=== PATIENT | male | born 1950 | race Caucasian/White ===

== ENCOUNTER → 2019-12-08 | Outpatient (CLI) | payer MEDICARE, OTHER ==
--- NOTE | 2019-12-08 16:14 | Diagnostic Imaging Report ---
Exam: Bone mineral density study. History: Osteoarthritis Comparison: None available. Discussion: Evaluation of the left hip and lumbar spine was performed. The study is technically adequate. The patient's fracture risk is compared to an age-matched control. The patient denies prior surgery/fracture of the spine, hips or forearm. Left hip femoral neck bone mineral density: 0.622 g/cm2, T-score is -2.3, Z-score is -1.1. Left hip total bone mineral density: 0.744 g/cm2, T-score is -1.9, Z-score is -1.3. Lumbar spine total bone mineral density: 1.046 g/cm2, T-score is -0.4, Z-score is 0.5. Impression: Bone mineralization by WHO Classification in the left hip is osteopenia, the fracture risk is increased. FRAX 10 year fracture risk: Major osteoporotic fracture: 8.5%. Hip fracture 3.8% Signed by: Dr. Armando Galvan M.D. on 12/08/2019 4:11 PM
== END ==
LOC: DX 10:49
PROVIDERS: ATTEND Specialist
DX: M16.0 Bilateral primary osteoarthritis of hip (principal); M85.88 Other specified disorders of bone density and structure, other site
CPT/HCPCS: 77080

== ENCOUNTER 2019-12-27 14:44 | Outpatient (RCR) | payer MEDICARE, OTHER | END 2020-01-17 | LOC: PT 14:44 | PROVIDERS: ATTEND Specialist | DX: M16.0 Bilateral primary osteoarthritis of hip (principal) ==

== ENCOUNTER → 2020-05-02 | Day surgery (SDC) | payer MEDICARE, OTHER ==
[2020-04-28 12:23] LABS: BASOPHILS # (AUTO) 0.1 (0.0-0.1); BASOPHILS % 0.9 % (0.0-1.0); EOSINOPHILS # (AUTO) 0.3 (0.0-0.4); EOSINOPHILS % 2.8 % (0.0-6.0); HEMATOCRIT 46.2 % (38.2-49.6); HEMOGLOBIN 15.4 g/dL (14.0-18.0); LYMPHOCYTES # (AUTO) 2.4 (1.0-3.2); LYMPHOCYTES % 26.2 % (18.0-39.1); MEAN CORPUSCULAR HEMOGLOBIN 31.6 pg (28-32); MEAN CORPUSCULAR HGB CONC 33.3 g/dL (31-35); MEAN CORPUSCULAR VOLUME 94.9 fL (81-99); MONOCYTES # (AUTO) 0.6 (0.2-0.8); MONOCYTES % 6.3 % (4.4-11.3); NEUTROPHILS # (AUTO) 5.7 (2.1-6.9); NEUTROPHILS % 63.4 % (38.7-80.0); PLATELET COUNT 250 x10e3/uL (140-360); RED BLOOD COUNT 4.87 x10e6/uL (4.3-5.7); RED CELL DISTRIBUTION WIDTH 12.7 % (11.7-14.4)
[~2020-05-02] MED LIST: BUPIVACAINE HCL 0.5% INJ 30 ML VIAL INJ ONE; CEFAZOLIN SOD 1 GM/NS 50ML 50 ML IV ONE; DEXAMETHASONE SOD PHOS INJ 4 MG/ML VIAL ONE; FENTANYL CITRATE/PF 100MCG/2 ML INJ ONE; GLYCOPYRROLATE INJ 0.2 MG/ML VIAL ONE; KETOROLAC TROMETHAMINE 30 MG/ML VIAL ONE; LIDOCAINE HCL 2% LOCAL INJ 5 ML SDV VIAL INJ ONE; ONDANSETRON HCL INJ 2MG/ML 2ML 2 MG/ML VIAL ONE; PROPOFOL IV EMULSION 10 MG/ML 20 ML VIAL ONE; SEVOFLURANE INHAL SOLN 250 ML PEN BTL ONE; VITAMIN C1000 M2 PO
[2020-05-02 10:40] VITALS: BP 131/71
== END | disposition home or self-care (01) ==
LOC: OR 06:25
PROVIDERS: ATTEND Podiatrist Foot & Ankle Surgery
DX: M20.21 Hallux rigidus, right foot (principal); G47.33 Obstructive sleep apnea (adult) (pediatric); Z72.0 Tobacco use; Z01.810 Encounter for preprocedural cardiovascular examination; Z01.812 Encounter for preprocedural laboratory examination; Z01.818 Encounter for other preprocedural examination; Z20.828 Contact with and (suspected) exposure to other viral communicable diseases
CPT/HCPCS: 28291; 36415; 71046; 85025; 93005; J0690; J1100; J1885; J2001; J2405; J2704; U0002; J3010